=== PATIENT | male | born 1985 | race African-American/Black ===

== ENCOUNTER 2024-02-29 05:33 | Emergency (ER) | payer SELFPAY ==
[~2024-02-29] VITALS: Ht 193 cm; Wt 118.0 kg
[2024-02-29 06:12] VITALS: BP 121/83; RESP 18; TEMP 98.5; O2SAT 100
[2024-02-29 09:00] VITALS: PULSE 16
[2024-02-29] MEDS ORDERED: BO1 TP (09:07)
[2024-02-29] MEDS ORDERED: IBUP-2028 MT (09:07)
[2024-02-29] MEDS ORDERED: ACET-2708 MT (09:07)
[2024-02-29] MEDS: IBUPROFEN 400MG TABLET PO ONE (09:25)
[2024-02-29] MEDS: ACETAMINOPHEN 325MG TABLET PO ONE (09:25)
== END 2024-02-29 09:27 | disposition home or self-care (01) ==
LOC: ER 05:43
DX: S01.01XA Laceration without foreign body of scalp, initial encounter (principal); W18.39XA Other fall on same level, initial encounter; Y93.89 Activity, other specified; Y92.89 Other specified places as the place of occurrence of the external cause; Y99.8 Other external cause status
CPT/HCPCS: 12001; 99282